=== PATIENT | female | born 1955 | race Two or more races ===

== ENCOUNTER 2016-07-31 06:44 | Day surgery (SDC) | payer BC ==
[~2016-07-31] VITALS: Ht 152.4 cm; Wt 66.0 kg
[2016-07-31 07:22] VITALS: Ht 152.4 cm; Wt 66.0 kg
[2016-07-31] MEDS ORDERED: ASPI-664 PO (07:33)
[2016-07-31] MEDS ORDERED: LOSA50TA6 PO (07:33)
[2016-07-31] MEDS ORDERED: SIMV5TAB50 PO (07:33)
[2016-07-31 07:58] VITALS: BP 136/81; PULSE 54; RESP 18
[2016-07-31] MEDS ORDERED: PROPOFOL 20 ML ONE (08:42)
[2016-07-31 09:13] VITALS: BP 131/78; PULSE 58; RESP 21
--- NOTE | 2016-07-31 13:19 | GILP ---
DATE OF PROCEDURE: PROCEDURE: Colonoscopy. INDICATION: A 61-year-old female undergoing this procedure for colon cancer screening. The risks o f the procedure, related and unrelated complications, anesthetic risks, alternatives discussed and i nformed consent was obtained. DESCRIPTION OF PROCEDURE: The patient was brought to the GI lab, sedated by Dr. Rivas. After opti mal sedation, scope was passed with much ease into rectum, advanced through sigmoid, descending, tra nsverse colon all the way into cecum. Appendiceal orifice and IC valve identified. While coming ou t, mucosa was inspected. The rest of the colon was normal. Retroversion done in the rectum, [employer] al hemorrhoids identified. Scope was straightened out and removed with good patient tolerance. IMPRESSION: 1. Normal findings all the way into the cecum. 2. Internal hemorrhoids on retroversion. 3. Clarity and cleanliness was good. PLAN: Stay on high fiber diet. Next colonoscopy after 10 years. Dictated By: LAKISHA OLIVER/ERICK Conf#: [id number] DID#: [id number] CC: *Dr. Raulito Ward;*EndCC*
== END 2016-07-31 16:52 | disposition home or self-care (01) ==
LOC: GIL 06:44 → SDS 06:44 → GIL 16:52
PROVIDERS: ATTEND Internal Medicine Gastroenterology
DX: Z12.11 Encounter for screening for malignant neoplasm of colon (principal); K64.8 Other hemorrhoids; E78.5 Hyperlipidemia, unspecified
CPT/HCPCS: 45378; Z7610